=== PATIENT | female | born 1950 | race Caucasian/White ===

== ENCOUNTER 2024-11-04 11:01 | Inpatient (IN) | payer OTHER, SELFPAY ==
[2024-11-04] VITALS (24 sets, daily range): BP systolic 122–214; BP diastolic 42–88; BMI 29.3; BMI 31.9
--- NOTE | 2024-11-04 08:24 | ED.GENMED ---
History of Present Illness
General
Chief Complaint: Heart Rate Problem
Time Seen by Provider: 11/04/24 08:06
History of Present Illness
History of Present Illness:
Patient is a 73-year-old woman with history of prior breast cancer in remission for greater than 5 years presenting to the emergency department of low heart rate. Patient states that she is actually [place] 2 days ago for the same and was told
she needed a pacemaker. However they discussed a temporary wire and patient states that she was not happy with that and actually left AGAINST MEDICAL ADVICE. She went to her primary care doctor who recommended her against that decision. Patient
has a that yesterday she was dizzy and then today came in at the request of her primary. She does say that she is slightly tired but otherwise has no symptoms. She is agreeable to any and all procedures at this time. She denies any
lightheadedness dizziness. No syncopal events. No chest pain. No difficulty breathing. No bites or rashes. Denies any known thyroid problems.
Phy Exam
Physical Exam
Physical Exam:
GENERAL: in no acute distress
HEENT: normocephalic, extraocular movements intact, moist oral mucosa
NECK: normal inspection
RESPIRATORY: no respiratory distress, clear to auscultation bilaterally
CARDIOVASCULAR: Bradycardic rate
ABDOMEN/: soft, non-distended, non-tender to palpation, no rebound or guarding
EXTREMITIES: non-tender, no edema/swelling
NEUROLOGIC: awake and alert, moves all extremities
SKIN: warm
Course
Orders/Labs/Results
Orders:
Orders
11/04/24 07:56
Electrocardiogram (*1) Urgent
Reason for Study: Bradycardia / Tachycardia
EKG- Treatment ONCE
11/04/24 08:27
Basic Metabolic Panel Urgent
Free T4 Urgent
Thyroid profile [TSH Reflex To Free T4] Urgent
11/04/24 09:03
Complete Blood Count/With Diff Urgent
11/04/24 09:19
Magnesium Urgent
Potassium Urgent
Abnormal Lab Results
11/04/24 11/04/24
08:27 09:03
MCH 31.7 H pg
(27.0-31.0)
MPV 11.3 H fL
(7.4-10.4)
Carbon Dioxide 20 L mmol/L
(22-30)
BUN 19 H mg/dl
(7-17)
Glucose 100 H mg/dl
(70-99)
TSH (Reflex) 5.34 H uIU/ml
(0.47-4.68)
11/04/24 09:03
Vital Signs
Initial and Last Documented VS:
Initial Vital Signs
Temp Pulse Resp BP Pulse Ox
98.2 F 39 18 188/79 99
11/04/24 07:51 11/04/24 07:51 11/04/24 07:51 11/04/24 07:51 11/04/24 07:51
Last Documented Vital Signs
Temp Pulse Resp BP Pulse Ox
98.2 F 36 16 169/64 97
11/04/24 07:51 11/04/24 08:33 11/04/24 08:33 11/04/24 09:00 11/04/24 09:00
MDM/Problems Addressed
Differential Diagnosis Includes:
Patient is a 73-year-old woman presenting to the emergency department bradycardia. On arrival here patient's heart rates in the 30s. Her blood pressure reassuringly is actually elevated. EKG per my interpretation is high degree heart block. We
did place pads on patient. Will check blood work occluding magnesium and thyroid. I did discuss with cardiology. After evaluating the EKG states is consistent with Mobitz type II. Recommend mission to the hospitalist service. Lab work is
unremarkable. Potassium magnesium keep hemolyzing. Thyroid studies pending. Discussed with hospitalist who accepted patient to their service
*Critical Care Note
Total Time (30-74mins, 75-104mins- exclusive of procedures): 20
comment:
Critical care statement: A total of 20 minutes of critical care time was provided for this patient. This includes management of unstable vital signs, evaluation of the patient at bedside, reviewing the patient's pertinent medical records, ordering
and reviewing studies, arranging urgent treatment with development of a management plan, evaluating patient's response to treatment, frequent reassessment, and discussion with consultants. This time was separate from time utilized to perform the
aforementioned documented procedures.
ED Attending Note
-
Portions of this chart may have been created with voice recognition software.� Occasional wrong word or��sound alike� substitutions may have occurred due to the inherent limitations of voice recognition software.
Discharge Plan
Departure
Patient Disposition: Admit
Date of Disposition: 11/04/24
Time of Disposition: 09:38
Presentation/result/management discussed w/ accepting MD/DO: Hospitalist
Discharge Problem:
Heart block
Referrals:
Alena Dickerson DO [Family Provider] -
Interventions
Interventions:
*Risk Screen - Suicide Last Done: 11/04/24 07:51
*General Assessment Last Done: 11/04/24 07:51
*Neglect/Abuse Screening Last Done: 11/04/24 07:51
*ED COVID-19 Vaccine History Last Done: 11/04/24 08:30
ED- Pulmonary Assessment Last Done: 11/04/24 08:30
ED- Neurological Assessment Last Done: 11/04/24 08:30
ED- Cardiac Assessment Last Done: 11/04/24 08:30
Discharge Date and Time
Print Language: ARABIC
[2024-11-04 08:52] LABS: Blood Urea Nitrogen 19 mg/dl (7-17); Calcium 9.8 mg/dl (8.4-10.2); Carbon Dioxide 20 mmol/L (22-30); Chloride 105 mmol/L (98-107); Glucose 100 mg/dl (70-99); Sodium 138 mmol/L (135-145); eGFR > 60.00
[2024-11-04 09:11] LABS: % Basophils 0.7 % (0-2); % Eosinophils 4.8 % (0-6); % Immature Granulocytes 0.4 % (0-0.5); % Lymphocytes 24.7 % (20.5-51.1); % Monocytes 8.3 % (1.7-9.3); % Neutrophils 61.1 % (42.2-75.2); Absolute Basophils 0.1 10^3/uL (0-0.2); Absolute Eosinophils 0.4 10^3/uL (0-0.7); Absolute Lymphocytes 1.8 10^3/uL (1.2-3.4); Absolute Monocytes 0.6 10^3/uL (0.1-0.6); Absolute Neutrophils 4.4 10^3/uL (1.4-6.5); Hematocrit 42.2 % (37.0-47.0); Hemoglobin 14.5 g/dL (12.0-16.0); Mean Corp Hgb Conc. 34.4 g/dL (33.0-37.0); Mean Corpuscular Hgb 31.7 pg (27.0-31.0); Mean Corpuscular Volume 92.1 fL (81.0-99.0); Mean Platelet Volume 11.3 fL (7.4-10.4); Nucleated Red Blood Cells % 0 %; Platelet Count 239 10^3/uL (130-400); Red Blood Cell Count 4.58 10^6/uL (4.20-5.40); Red Cell Dist. Width 13.8 % (11.5-14.5); White Blood Cell Count 7.2 10^3/uL (4.8-10.8)
[2024-11-04 09:23] LABS: TSH Reflex To Free T4 5.34 uIU/ml (0.47-4.68)
[2024-11-04 10:04] LABS: Free T4 1.16 ng/dl (0.78-2.19)
--- NOTE | 2024-11-04 10:29 | CON.CAR ---
Addendum entered and electronically signed by Sury Carias PA-C 11/04/24 16:15:
Records obtained from [facility]. Last echocardiogram 06/07/2022: EF 60%, grade 1 diastolic dysfunction, trace MR, mild TR, mildly dilated ascending aorta
Addendum entered and electronically signed by Ye Villa MD 11/04/24 11:15:
Patient seen, interviewed and examined by me.
Well-appearing, no acute distress
Regular rate and rhythm with normal S1 and S2, no S3 no S4. There is a grade 1/6 apical holosystolic murmur and no rubs. PMI is normally placed.
Lungs are clear to auscultation bilaterally without wheezes rales or rhonchi.
Abdomen soft nontender nondistended with normoactive bowel sounds
Extremities show trace pretibial edema bilaterally no clubbing or cyanosis.
Neurologic exam is grossly nonfocal.
Telemetry demonstrates 2-1 heart block.
ECG demonstrates sinus rhythm with 2-1 AV conduction and ventricular rate of 38 bpm. QRS escape is relatively narrow at 98 ms
She has demonstrated symptomatic type II second-degree AV block with no reversible cause.
Management options discussed with her in detail and I recommended implantation of dual-chamber permanent pacemaker for symptomatic heart block with no reversible cause. She understands. I described the procedure in detail including possible risks
such as , pneumothorax, infection with overall major risks of less than 3%. She understands and wishes to proceed with permanent pacemaker implantation.
We reviewed that she does have a history of left-sided breast cancer treated with lumpectomy in 2018. She tells me that yearly screening has found no recurrence. She is right hand dominant and we discussed option of implanting on the left versus
the right. She wishes to proceed with right sided implantation but understands that should she recur with left breast cancer we may have to consider moving or potentially even removing the device to allow complete treatment.
-Plan for left-sided dual-chamber permanent pacemaker implantation today
Agree with advanced practice professionals assessment and plan as noted below.
Original Note:
Consultation
Consultation Request
Date/Time Consultation Performed: 11/04/24
Requesting Provider: Dr. Hernandez
Performing Provider: Sury Carias PA-C for Dr. Kerwin Villa
Reason for Consultation: heart block
Medical History
-
Chief Complaint: heart block
History of Present Illness:
Patient is a 73-year-old female with past medical history of left-sided breast cancer status post lumpectomy and radiation, in remission, COPD, intermittent Mobitz 2 AV block/Wenckebach, who when seen by Dr. Becerra in 07/2024 was noted to be in
permanent Mobitz 2, not intermittent as she had previously been noted to be in in the past. She met with EP physician at [facility] who recommended pacemaker placement, however she did not proceed with pacemaker at that time. She
reports feeling sluggish in the mornings in particular, and short of breath with climbing stairs, however otherwise reports she has been 'doing okay'. 2 days ago when she woke up she had episode where she felt very dizzy with ringing in her ears
and seeing light in her eyes. She was seen by her primary care physician and recommended evaluation. She was scheduled to see Dr. Spivey for second opinion 11/13/2024, so came to [facility]. She is noted to be in 2-1 AV block with heart
rates in the 30s to 40s. Denies episodes of syncope. She is now agreeable to pacemaker. Is not on AV eddie blocking agents as an outpatient.
PMH:
Intermittent Mobitz 2 AV block
Left-sided breast cancer status post lumpectomy and radiation, in remission
Hyperlipidemia, prior statin refusal
COPD
Past Medical History
Past Medical History: Other (in HPI)
Social History
Tobacco: Non-Smoker
Alcohol: Occasional
Living: Alone
Employment: Retired
Family History
Family History: Reviewed & Not Pertinent
Allergies / Home Medications
�Medication �Instructions �Recorded �Confirmed �Type
No Meds [No Current Medications] 11/04/24 11/04/24 History
Review of Systems
-
History Source: Patient and Family
All other systems: Negative unless noted
Physical Exam
Vital Signs
Temp Pulse Resp BP Pulse Ox
98.2 F 36 16 169/64 97
11/04/24 07:51 11/04/24 08:33 11/04/24 08:33 11/04/24 09:00 11/04/24 09:00
Lab Results
11/04/24 09:03
Physical Exam
General: No Apparent Distress and Comfortable
HEENT: Normocephalic, Anicteric and Moist Mucous Membranes
Respiratory: Clear and Non Labored Respirations
Cardiac: S1/S2, Regular Rhythm and Other (bradycardic)
GI: Soft, Non Tender, Non Distended and Normal Bowel Sounds
Musculoskeletal: No Clubbing, No Cyanosis and No Edema
Skin: Warm and Dry
Neuro: AO x 3
Impression / Plan
-
Primary Briquette Machine Operator: Dr. Becerra of [facility]
Assessment:
Dizziness
Symptomatic high grade AV block
HTN
Left-sided breast cancer status post lumpectomy and radiation, in remission
Hyperlipidemia, prior statin refusal
COPD
ECHO 11/04/24: pending
Plan:
-Patient with history of intermittent Mobitz type II AV block with recent noted progression to permanent, now presents to [facility] after episode of dizziness and noted to be in 2-1 heart block with heart rates in the 30s to 40s.
-reviewed records from primary wafer production lead worker including office visit 07/28/24. requested additional records including last echo for review
-As with symptomatic high-grade AV block, will plan for pacemaker placement today. She last had a coffee at 5 AM, nothing since. Will keep n.p.o.
-Reviewed pacemaker procedure with patient and son at bedside. We reviewed postprocedure activity restrictions and limitations. She is agreeable to proceed
-Blood pressure is markedly elevated in ER. Ordered IV hydralazine 5 mg now. Will follow blood pressure trends post pacemaker, and may need to consider addition of daily antihypertensive
-Urgent echo ordered
-TSH 5.34 with compensated free T4
-Discussed with hospitalist via [place] text
Data Reviewed
-
EKG: Tracing Personally Visualized and interpreted
Labs: Labs Reviewed by me
Old Records: Requested and Reviewed
--- NOTE | 2024-11-04 10:45 | HPS.HSE ---
Family Physician
-
Family Physician: Alena Dickerson
Chief Complaint
-
Dizziness
History of Present Illness
73-year-old female with past medical history of breast cancer status postlumpectomy, appendicitis status post appendectomy came to the hospital with bradycardia and dizziness. Patient was at [facility] 2 days ago with similar symptoms and
was recommended pacemaker. Cardiology they recommended temporary pacemaker wire and transfer the patient however patient left AGAINST MEDICAL ADVICE. Patient came in today with complaining of dizziness, mild headache. Denies any chest pain,
shortness of breath. Denies any syncopal events. Denies any abdominal pain, nausea, vomiting, diarrhea, constipation
Medical History
Past Medical History
Past Medical History: Reports HTN and Other (Breast cancer)
Past Surgical History: Reports Appendectomy
Social History
Tobacco: Non-smoker
Family History
Family History: Not pertinent
Allergies / Home Medications
Allergies reflects when Allergies were last updated in [facility].
Home Medications with original date entered in [facility]
Allergy/Medication List:
Allergies
Allergy/AdvReac Type Severity Reaction Status Date / Time
No Known Allergies Allergy Verified 11/04/24 10:39
Home Medications
No Meds [No Current Medications] 11/04/24
Review of Systems
-
History Source: Patient
A 12 point ROS was completed and negative except as noted: Yes
Constitutional: Reports Other (Dizziness)
Physical Exam
Vital Signs
Vital Signs
Temp Pulse Resp BP Pulse Ox
98.2 F 36 16 169/64 97
11/04/24 07:51 11/04/24 08:33 11/04/24 08:33 11/04/24 09:00 11/04/24 09:00
Physical Exam
General: Well Nourished and No Apparent Distress
HEENT: Anicteric and Moist mucous membranes
Respiratory: Clear and Non Labored Respirations; No Wheezes
Cardiac: S1/S2 and Bradycardia
Breast: Deferred by me
GI: Soft, Non Tender, Non Distended and Normal Bowel Sounds
Rectal: Deferred by Provider
Genito-urinary: No Wall
Musculoskeletal: No Edema
Neuro: Awake, Alert, Oriented and AO x 3
Psych: Calm and Intact Judgment/Insight
Laboratory Results
-
11/04/24 09:03
Laboratory Results
Total Bilirubin Cancelled 11/04/24 08:27
AST Cancelled 11/04/24 08:27
ALT Cancelled 11/04/24 08:27
Alkaline Phosphatase Cancelled 11/04/24 08:27
Data Reviewed
-
Lab Data: Labs Reviewed by me, Discussed with Patient and Discussed with Family
Impression/Plan
-
Bradycardia, dizziness/lightheadedness secondary to Mobitz type II AV block
Discussed with cardiology, plan for pacemaker today
N.p.o.
Echocardiogram
Admit to IVU
Monitor on telemetry
TSH high however free T4 normal, monitor
Check Trop
Hypertension
Per patient she has intermittent hypertension however does not take any medications
Hydralazine in the ED, continue to monitor
History of breast cancer status postlumpectomy
DVT prophylaxis
SCDs for now, post pacemaker per cardiology
Full code
Discussed with son at bedside
[2024-11-04] MEDS: APRESOLINE 5 MG IV (10:51)
[2024-11-04 11:24] LABS: Potassium 4.5 mmol/L (3.5-5.1)
--- NOTE | 2024-11-04 14:06 | W.PN.UPDATE ---
Update Note
Progress Note Update
Briefly, patient is a pleasant 73 year old female with past medical history significant for left sided breast CA s/p lumpectomy/XRT in remission, COPD, intermittent now reported permanent 2nd degree type 2 (Mobitz 2) AVB. Patient presenting with
symptomatic irreversible bradycardia and high degree AVB. No reported syncope. Patient previously recommended PPM 07/2024 with physician at [facility] but refused. Patient presenting today due to worsening bradycardia symptoms/dizziness and
presented to with symptomatic bradycardia HR 30-40 with 2:1 AVB (2nd degree type 2). Dr. Villa spoke with patient and discussed pacemaker, patient agreeable to to pacemaker. In my discussion with patient, we discussed pacemaker indications
and device implant in detail. For implant there is an approximate 1:1000 risk of LA/stroke/ and a 1% risk of pneumothorax/tamponade/infection/bleeding. We also discussed post procedure implant restrictions including positions to avoid with
implant arm for first six weeks after implant as well as driving restrictions. I took time to answer all questions. We discussed that we plan to place pacemaker left-sided per patient request given handedness however we will start with venogram in
order to better assess blood vessel course and if unable to place due to anatomy on left side, will place right-sided. Patient agreed and verbalized understanding. Regarding pacemaker, patient verbalized understanding and agreed with plan.
Patient remains NPO. Consent signed.
--- NOTE | 2024-11-04 16:22 | ITS.CL.PACE ---
Superintendent Production - Pacemaker Implant
Pacemaker Implant
Procedure Report:
Primary Care Doctor: Alena Dickerson DO
Procedure Date: 11/04/2024
Name of procedure:
1. Placement of a dual-chamber pacemaker with left bundle area pacing lead for conduction system pacing
2. Subclavian venography
History:
1. patient is a pleasant 73 year old female with past medical history significant for left sided breast CA s/p lumpectomy/XRT in remission, COPD, intermittent now reported permanent 2nd degree type 2 (Mobitz 2) AVB. Patient presenting with
symptomatic irreversible bradycardia and high degree AVB. No reported syncope.
2. Please refer to H&P for complete history.
Indication:
Symptomatic irreversible bradycardia
Second-degree type II AV block
Methods:
After informed consent was obtained, the patient was brought to the EP laboratory in a postabsorptive, nonsedated state. Peripheral IV access was established. Prophylactic antibiotics were administered prior to incision. Continuous ECG, blood
pressure, and pulse oximetry were initiated. Cardioversion patch electrodes were placed on the patient's chest and back. A grounding patch was applied to the skin. Sedation was administered by anesthesia services.
In order to define the extrathoracic portion of the subclavian vein and exclude significant venous obstruction or anomalous anatomy, subclavian venography was performed prior to the procedure. Using the patient's left peripheral IV, contrast was
injected and images were recorded. The left subclavian vein and SVC were found to be widely patent.
The left chest was prepared and draped in a sterile fashion. A time-out was performed. Local anesthesia was injected in the subcutaneous tissue in the infraclavicular area. An incision was made medial to the deltopectoral groove. The subcutaneous
tissue was dissected the level of the prepectoral fascia. A subcutaneous pocket was created. Under fluoroscopic guidance and with the assistance of the images from the venogram, 2 separate venipunctures were made using micropuncture and modified
Seldinger technique. These were performed in the extrathoracic portion of the subclavian vein. Guidewires were passed and two peel-away sheaths were placed, and used to advance leads into the circulation.
Fluoroscopy was used to determine likely anatomic site for left bundle branch pacing. The Medtronic C315 sheath was used to deliver the Medtronic 3830 Selectsecure pacing lead with the helix exposed just exposed from the sheath tip during continuous
monitoring when pacemapping the septum during gentle clockwise rotation to obtain a paced QRS morphology of a W pattern in lead V1. Once the suspected optimal site was identified, lead deployment was performed with several rapid rotations as paced
QRS morphology was intermittently monitored until a paced QRS complex in lead V1 demonstrated development of an R wave (qR or rSR). Unipolar pacing impedance dropped by approximately 100-200 ohms suggesting it had reached the left ventricular
subendocardial. Stable VEgm injury current is present throughout lead position and at end of case. Final unipolar pacing impedance is 912 Ohms with clips. Unipolar pacing threshold is stable at 1.2 V @ 0.4 ms. The patient had pre-existing narrow
QRS. Final conduction system paced QRS complex duration is 108 ms, LVAT is 37 ms, and peak V5 -> peak V1 timing is 85 ms. The C315 sheath was slit under fluoroscopy ensuring lead position and stability.
Next, the right atrial lead was positioned in the right atrial appendage. Adequate sensing and pacing parameters were found, and no diaphragmatic stimulation was seen with high-output pacing. Both sheaths were split, and the leads were secured to
the fascia with Ethibond ties.
The pocket was flushed with antibiotic solution and hemostasis was assured. The generator was connected to the leads and placed inside the pocket. The device was sutured to the fascia. Antibiotic envelope was used. The wound was closed with 3
running layers of absorbable suture, and steri-strips were applied. Dressing applied over steri-strips in standard fashion.
Following the procedure, the patient was taken to the recovery area in stable condition. A chest x-ray to be obtained post procedure as routine.
Lead parameters and device programming:
- RA Lead (Medtronic, Model 5076, # [id number]): Sensing 2.6 mV, Pacing threshold 0.5 V at 0.4 ms, Imp 855 ohm
- RV Lead (Medtronic, Model 3030, #[id number]): Sensing 13.4 mV, Pacing threshold 0.75 V at 0.4 ms, Imp 513 ohm
- Device: Medtronic, Model W1 DR 01 pacemaker (# [id number]), programmed DDD, mode switch on, lower rate 60, upper tracking rate 130
Conclusions:
1. Successful placement of a dual-chamber pacemaker with conduction system pacing (LBBAP)
2. Subclavian venography
Recommendations:
1. Admit
2. Chest x-ray today, [facility] tomorrow
3. IV antibiotics while the patient is admitted.
4. OK to resume home medications as indicated
5. Pressure dressing to be removed in AM, aquacell to remain until wound check
6. Follow-up will be arranged in the office in 7-10 days post-discharge
Gasper Jones DO
Clinical Cardiac System Development Engineer
cc: Alena Dickerson DO
[2024-11-04] MEDS: TYLENOL 650 MG PO (18:21)
[2024-11-04] MEDS: NSS 1000 IV (19:51)
[2024-11-04 20:33] LABS: Troponin I 0.929 ng/ml
--- NOTE | 2024-11-04 21:30 | PTCARENOTE ---
Pt received in bed- Plan of care discussed- IVF started- L chest wall CDI with pressure dressing in place. Pt still states 3/10 L chest wall pain after Tylenol- ice pack provided. finance effectiveness manager or svp programmatic tv on the monitor 50s- 60s
[2024-11-04] MEDS: ANCEF 5 IV (22:31)
[2024-11-05] VITALS (21 sets, daily range): BP systolic 131–194; BP diastolic 66–104; PULSE 64–66; O2SAT 97; BMI 32.0
[2024-11-05] MEDS: ANCEF 5 IV (05:10)
[2024-11-05] MEDS: TYLENOL 650 MG PO ×2 (05:25→09:38)
[2024-11-05 05:45] LABS: % Basophils 0.5 % (0-2); % Eosinophils 5.5 % (0-6); % Immature Granulocytes 0.3 % (0-0.5); % Lymphocytes 21.2 % (20.5-51.1); % Monocytes 8.9 % (1.7-9.3); % Neutrophils 63.6 % (42.2-75.2); Absolute Eosinophils 0.4 10^3/uL (0-0.7); Absolute Lymphocytes 1.7 10^3/uL (1.2-3.4); Absolute Monocytes 0.7 10^3/uL (0.1-0.6); Absolute Neutrophils 5.1 10^3/uL (1.4-6.5); Hematocrit 42.2 % (37.0-47.0); Hemoglobin 14.3 g/dL (12.0-16.0); Mean Corp Hgb Conc. 33.9 g/dL (33.0-37.0); Mean Corpuscular Hgb 31.4 pg (27.0-31.0); Mean Corpuscular Volume 92.7 fL (81.0-99.0); Mean Platelet Volume 9.4 fL (7.4-10.4); Nucleated Red Blood Cells % 0 %; Platelet Count 195 10^3/uL (130-400); Red Blood Cell Count 4.55 10^6/uL (4.20-5.40); Red Cell Dist. Width 13.2 % (11.5-14.5)
[2024-11-05 06:01] LABS: Blood Urea Nitrogen 13 mg/dl (7-17); Calcium 9.3 mg/dl (8.4-10.2); Carbon Dioxide 19 mmol/L (22-30); Chloride 109 mmol/L (98-107); Estimated Creatinine Clearance 79 ml/min; Glucose 113 mg/dl (70-99); Magnesium 1.8 mg/dl (1.6-2.3); Potassium 4.2 mmol/L (3.5-5.1); Sodium 140 mmol/L (135-145); eGFR > 60.00
[2024-11-05 06:38] LABS: Troponin I 0.273 ng/ml
--- NOTE | 2024-11-05 07:41 | W.PN.CARDCBS ---
Addendum entered and electronically signed by Kristin Wolff DO 11/05/24 17:24:
I saw and examined the patient.
The Cook Fruit's note was reviewed and I agree with the note.
Comment: Patient was seen and examined. Overall feels better. Pressure dressing removed at bedside and site looks good.
GEN: No distress, awake, alert, oriented x3
HEENT: mmm
LUNGS: CTA b/l, no wheezes/rales
CV: Reg, S1/S2, no murmur Device site with dressing
EXT: No clubbing, cyanosis, or edema
NEURO: Gross non-focal
Plan:
Symptomatic high degree AV block status post Medtronic pacemaker 11/04/2024
-Device site looks good and we reviewed postprocedure activity restrictions and monitoring
-Will have outpatient wound check arranged in our office
Hypertension, untreated and uncontrolled
-New start amlodipine 10 mg daily
-If blood pressures remain elevated would add INDERJIT inhibitor which can ultimately be combined with amlodipine as an outpatient
-Goal normotension
Hyperlipidemia with prior statin refusal can be readdressed as an outpatient
Will sign off, recall if needed
Original Note:
Today's Communication / Plan
-
Appears well post PPM
Would start amlodipine 5mg daily
Follow up arranged
OK for discharge
Impression / Plan
-
Commercial Designer: Dr. Becerra of [facility], however wishes to transition to [facility]
Assessment:
Dizziness
Symptomatic high grade AV block
s/p Medtronic DC PPM 11/04/2024
HTN, untreated
Left-sided breast cancer status post lumpectomy and radiation, in remission
Hyperlipidemia, prior statin refusal
COPD
Echo @[facility] 06/07/2022: EF 60%, grade 1 diastolic dysfunction, trace MR, mild TR, mildly dilated ascending aorta
ECHO 11/04/2024: EF 65 to 70%, mild with peak/mean gradients 30/13 mmHg, KONRAD 1.9 cm�, mild to moderate TR, estimated PAP 35 to 40 mmHg
Plan:
-She has known history of intermittent Mobitz type II AV block with recent noted progression to permanent. Admitted to with dizziness and symptomatic 2:1 heart block w/ HR in 30s to 40s.
-Now s/p DC PPM implant 11/04/2024. Doing well this AM.
-Tele stable overnight. A-sensed, V paced.
-Echo 11/04/2024 w/ preserved EF and mild as noted above.
-TSH 5.34 with compensated free T4.
-BP remains elevated throughout the night. Discussed w/ patient and she believes she has been on medication for HTN in the past, but not recently.
-Would start amlodipine 5mg daily and will follow as OP.
-Wound check appointment and HV follow up appt arranged at [facility].
-OK for discharge from cardiac standpoint. Discussed arm restrictions post PPM.
HPI: Patient is a 73-year-old female with past medical history of left-sided breast cancer status post lumpectomy and radiation, in remission, COPD, intermittent Mobitz 2 AV block/Wenckebach, who when seen by Dr. Becerra in 07/2024 was noted to be
in permanent Mobitz 2, not intermittent as she had previously been noted to be in in the past. She met with EP physician at [facility] who recommended pacemaker placement, however she did not proceed with pacemaker at that time. She
reports feeling sluggish in the mornings in particular, and short of breath with climbing stairs, however otherwise reports she has been 'doing okay'. 2 days ago when she woke up she had episode where she felt very dizzy with ringing in her ears
and seeing light in her eyes. She was seen by her primary care physician and recommended evaluation. She was scheduled to see Dr. Spivey for second opinion 11/13/2024, so came to [facility]. She is noted to be in 2-1 AV block with heart
rates in the 30s to 40s. Denies episodes of syncope. She is now agreeable to pacemaker. Is not on AV eddie blocking agents as an outpatient.
Progress Note - Commercial Designer
Subjective
Date of Service: November 05, 2024
Feeling well this AM. Does have some soreness around implant.
Objective
Labs:
11/05/24 05:25
11/05/24 05:25
Labs
Hgb 14.3 g/dL (12.0-16.0) 11/05/24 05:25
Hct 42.2 % (37.0-47.0) 11/05/24 05:25
Plt Count 195 10^3/uL (130-400) 11/05/24 05:25
Sodium 140 mmol/L (135-145) 11/05/24 05:25
Potassium 4.2 mmol/L (3.5-5.1) 11/05/24 05:25
BUN 13 mg/dl (7-17) 11/05/24 05:25
Creatinine 0.6 mg/dL (0.6-1.0) 11/05/24 05:25
Glucose 113 mg/dl (70-99) H 11/05/24 05:25
Troponins
11/04/24 11/05/24
19:55 05:25
Troponin I 0.929 H* 0.273 H*
Vital Signs and I&O:
Vital Signs
Temp Pulse Resp BP Pulse Ox
97.4 F 62 20 159/69 98
11/05/24 07:03 11/05/24 05:48 11/05/24 07:03 11/05/24 05:48 11/05/24 07:03
Vital Signs
Temp Pulse Resp BP Pulse Ox
97.4 F 62 20 159/69 98
11/05/24 07:03 11/05/24 05:48 11/05/24 07:03 11/05/24 05:48 11/05/24 07:03
Physical Exam
Physical Exam
GEN: No distress, awake, alert, oriented x3
HEENT: supple, anicteric, mmm
LUNGS: CTA b/l, no wheezes/rales
CV: Reg, S1/S2, no murmur
EXT: No clubbing, cyanosis, or edema
NEURO: Gross non-focal
SKIN: Warm, dry, no rash
[2024-11-05] MEDS: APRESOLINE 5 MG IV ×2 (08:06→12:26)
[2024-11-05] MEDS: NSS 1000 IV (08:07)
[2024-11-05] MEDS: NORVASC 5 MG PO ×2 (09:24→14:17)
--- NOTE | 2024-11-05 11:38 | W.PN.HOSP.TC ---
Today's Communication/Plan
-
Monitor blood pressure closely
See plan
Continue with amlodipine, will likely increase to 10 mg if blood pressure still uncontrolled
Hydralazine as needed, extra dose now
Assessment / Plan
Assessment / Plan
General: Well Nourished and No Apparent Distress
HEENT: Anicteric and Moist mucous membranes
Respiratory: Clear and Non Labored Respirations; No Wheezes
Cardiac: S1/S2,PPM,chest wall bandage
GI: Soft, Non Tender, Non Distended and Normal Bowel Sounds
Genito-urinary: No Wall
Musculoskeletal: No Edema
Neuro: Awake, Alert, Oriented and AO x 3
Psych: Calm and Intact Judgment/Insight
Bradycardia, dizziness/lightheadedness secondary to Mobitz type II AV block
Status post pacemaker 11/04
Echocardiogram with preserved EF
TSH high however free T4 normal, monitor
Elevated troponin, likely nonischemic myocardial injury from AV block
Monitor
Hypertension
Per patient she has intermittent hypertension however does not take any medications
Hydralazine as needed, started amlodipine, will uptitrate if needed. Currently blood pressure still uncontrolled. Patient is with headache
History of breast cancer status postlumpectomy
DVT prophylaxis
SCDs for now, post pacemaker per cardiology
Full code
Anticipated Discharge: Within 24 hours
Subjective/Interval History
-
Date of Service: November 05, 2024
Has headache
Objective Data
-
Labs:
Laboratory Results
11/05/24
05:25
WBC 8.0
Hgb 14.3
Hct 42.2
Plt Count 195
Sodium 140
Potassium 4.2
Chloride 109 H
Carbon Dioxide 19 L
BUN 13
Creatinine 0.6
Glucose 113 H
Calcium 9.3
Vital Signs:
Vital Signs
Temp Pulse Resp BP Pulse Ox
97.4 F 66 16 191/80 97
11/05/24 11:18 11/05/24 11:35 11/05/24 11:18 11/05/24 11:35 11/05/24 11:18
I&O
11/04/24 11/05/24 11/06/24
06:59 06:59 06:59
Intake Total 400 / 400
Balance 400 / 400
--- NOTE | 2024-11-05 12:32 | CM ---
spoke to pt in room, she is prev indep, lives in an apt with 16 steps to enter. she denies any dc planning needs or dme's. plan is for dc to home when medically stable.
--- NOTE | 2024-11-05 12:43 | PTCARENOTE ---
Manual BP 182/80. 5mg IV Hydralazine ordered and administered. Repeat BP 152/79.
--- NOTE | 2024-11-05 21:06 | PTCARENOTE ---
pt received at change of shift. pt seen and assessed in room. AOx3, tele reading AV paced. Pacemaker site at left chest wall, c/d/i. no complaints of pain at this site. pt. ambulating independently. last BP 131/74, no PRN hydralazine needed at this
time. this RN discussed POC, pt. verbalizes understanding. call schwarz within reach. continuing to monitor at this time.
[2024-11-06 02:22] VITALS: BP 144/74
[2024-11-06 02:24] VITALS: BP 144/74
[2024-11-06 03:05] LABS: % Basophils 0.6 % (0-2); % Immature Granulocytes 0.2 % (0-0.5); % Lymphocytes 23.5 % (20.5-51.1); % Monocytes 9.9 % (1.7-9.3); % Neutrophils 59.8 % (42.2-75.2); Absolute Basophils 0.1 10^3/uL (0-0.2); Absolute Eosinophils 0.5 10^3/uL (0-0.7); Absolute Lymphocytes 2.1 10^3/uL (1.2-3.4); Absolute Monocytes 0.9 10^3/uL (0.1-0.6); Absolute Neutrophils 5.3 10^3/uL (1.4-6.5); Hematocrit 39.6 % (37.0-47.0); Hemoglobin 13.6 g/dL (12.0-16.0); Mean Corp Hgb Conc. 34.3 g/dL (33.0-37.0); Mean Corpuscular Hgb 31.3 pg (27.0-31.0); Mean Platelet Volume 9.6 fL (7.4-10.4); Nucleated Red Blood Cells % 0 %; Platelet Count 204 10^3/uL (130-400); Red Blood Cell Count 4.35 10^6/uL (4.20-5.40); Red Cell Dist. Width 13.3 % (11.5-14.5); White Blood Cell Count 8.8 10^3/uL (4.8-10.8)
[2024-11-06 03:28] LABS: Blood Urea Nitrogen 10 mg/dl (7-17); Calcium 9.2 mg/dl (8.4-10.2); Carbon Dioxide 21 mmol/L (22-30); Chloride 110 mmol/L (98-107); Estimated Creatinine Clearance 79 ml/min; Glucose 107 mg/dl (70-99); Potassium 4.2 mmol/L (3.5-5.1); Sodium 139 mmol/L (135-145); eGFR > 60.00
[2024-11-06 07:53] VITALS: BP 134/74
[2024-11-06] MEDS: NORVASC 10 MG PO (08:19)
--- NOTE | 2024-11-06 11:35 | PTCARENOTE ---
Discussed post PPM pt instructions. Pt verbalized understanding. Will monitor.
--- NOTE | 2024-11-06 11:41 | W.PN.HOSP.TC ---
Addendum entered and electronically signed by Ronnie Walters MD 11/06/24 14:56:
Hypertensive Urgency
Original Note:
Today's Communication/Plan
-
Monitor vital signs see plan
Continue with amlodipine
Discharge today
Time of discharge 37 minutes
Assessment / Plan
Assessment / Plan
General: Well Nourished and No Apparent Distress
HEENT: Anicteric and Moist mucous membranes
Respiratory: Clear and Non Labored Respirations; No Wheezes
Cardiac: S1/S2,PPM,chest wall bandage
GI: Soft, Non Tender, Non Distended and Normal Bowel Sounds
Genito-urinary: No Wall
Musculoskeletal: No Edema
Neuro: Awake, Alert, Oriented and AO x 3
Psych: Calm and Intact Judgment/Insight
Bradycardia, dizziness/lightheadedness secondary to Mobitz type II AV block
Status post pacemaker 11/04
Echocardiogram with preserved EF
TSH high however free T4 normal, monitor
Elevated troponin, likely nonischemic myocardial injury from AV block
Monitor
Hypertension
Per patient she has intermittent hypertension however does not take any medications
Hydralazine as needed, started amlodipine, increase to 10 mg. Blood pressure much better now. Discharge home. Patient aware to check blood pressure outpatient and follow-up with PCP
History of breast cancer status postlumpectomy
DVT prophylaxis
SCDs for now, post pacemaker per cardiology
Full code
Anticipated Discharge: Today
Subjective/Interval History
-
Date of Service: November 06, 2024
Denies pain
Objective Data
-
Labs:
Laboratory Results
11/06/24
02:27
WBC 8.8
Hgb 13.6
Hct 39.6
Plt Count 204
Sodium 139
Potassium 4.2
Chloride 110 H
Carbon Dioxide 21 L
BUN 10
Creatinine 0.6
Glucose 107 H
Calcium 9.2
Vital Signs:
Vital Signs
Temp Pulse Resp BP Pulse Ox
98.4 F 74 18 134/74 97
11/06/24 07:55 11/06/24 10:00 11/06/24 07:55 11/06/24 08:19 11/06/24 07:55
I&O
11/05/24 11/06/24 11/07/24
06:59 06:59 06:59
Intake Total 1000 / 1000
Balance 1000 / 1000
--- NOTE | 2024-11-06 11:44 | W.DCSUMMARY ---
Discharge Summary
Discharge Data
Date of Admission: 11/04/24
Date of Discharge: 11/06/24
-
Pending Results: No
Hospital Course
73-year-old female with past medical history of breast cancer status postlumpectomy, hypertension came to the hospital with bradycardia, dizziness/lightheadedness secondary to Mobitz type II AV block. Patient was seen by cardiology and was taken
for pacemaker placement. Echocardiogram was done which showed preserved EF. Patient TSH was high on admission however free T4 was normal. Patient also had some troponin elevation which was likely thought was nonischemic myocardial injury from AV
block. Given her uncontrolled blood pressure she was started on amlodipine which was uptitrated to 10 mg daily. Her blood pressure continue to improve over time. On discharge she was instructed to check blood pressure twice daily and to follow-up
with primary care provider for further blood pressure medication titration. Once her symptoms continue to improve, she was then discharged home with instructions to follow-up with all her physicians outpatient.
Discharge Plan
-
Patient Disposition: Home (Routine Discharge)
Discharge Diagnosis/Procedures: Mobitz type II AV block status post pacemaker implant
Uncontrolled hypertension
Diet: As tolerated and Regular
Driving Restrictions: No driving for 1 week
Bathing Restrictions: OK to Shower
Activity Restrictions/Additional Instructions:
Please monitor your blood pressure twice daily and to follow-up with primary care provider for further blood pressure management
Stand Alone Forms: DC Inst - Implanted Device
Referrals:
José Antonio.[facility] [Provider Group] - 11/11/24 10:00 am (Incision check appointment)
Yolanda Abdalla CRNP [Specified Professional Personl] - 11/30/24 2:20 pm (You have a follow up visit with Dr. Jones's CORPORATE SALES TRAINER, Yolanda, at the [facility]. Please call with questions. )
Alena Dickerson DO [Family Provider] - in less than 1 week
Prescriptions:
New
acetaminophen 325 mg Tablet
650 mg PO Q4HPRN PRN (Reason: MILD PAIN) Qty: 0 0RF
amlodipine 10 mg Tablet
10 mg PO DAILY Qty: 30 0RF
Discharge Orders:
Discharge Patient (As Directed); Ordered 11/06/24
Ordered By: Ronnie Walters
Care Plan Goals
Care Plan Goals:
Problem: Readiness for enhanced knowledge related to diagnosis and treatment plan
Goal: Understand your diagnosis and treatment plan needs, including medications if applicable.
Instructions: Know your diagnosis, underlying causes and treatment plan options, including medications if applicable. Consult with your health care team to learn about your diagnosis and treatment plan, including medications if applicable.
Discharge Date and Time
Discharge Date/Time: 11/06/24 17:05
Print Language: PERSIAN
[2024-11-06 12:02] VITALS: BP 144/80
--- NOTE | 2024-11-06 14:42 | PN.CDI ---
CDI
- -
CDI:
Physician Documentation Request
Admit Date: 11/04/24 11:01
Dear Doctor Romeo,
Clinical Indicators:
Patient admitted with Mobitz type II AV block; s/p dual chamber pacemaker 11/04.
11/04 - 11/05 Hydralazine 5 mg IV x 3 doses.
11/05 PN, 'Currently blood pressure still uncontrolled. Patient is with headache'
B/P trend:
11/04/24
07:51 11/04/24
08:08 11/04/24
09:30
Blood pressure 188/79 214/58 201/68
11/04/24
10:00 11/05/24
10:38 11/05/24
11:35
Blood pressure 190/67 194/77 191/80
Please clarify which, if any of the following, is a more accurate diagnosis reflecting the type and acuity of the documented hypertension:
Hypertensive Urgency - B/P is severely elevated (systolic > or = to 180 or diastolic > or = to 110) but there is no associated organ damage. Symptoms may include: headache, shortness of breath, nosebleeds, severe anxiety. Treatment usually consists
of addition to or adjusting of oral medications and does not generally necessitate hospitalization.
Essential primary hypertension
Other (please specify)
Use of terms such as suspected, likely, concern for, or probable (associated with a specific diagnosis that is being evaluated, monitored, or treated as if it exists) are acceptable and can be coded in the inpatient setting, when documented at the
time of discharge.
Thank you,
Isabella Hammer RN
CDI Specialist
available via tiger text
Please use your independent medical judgment in providing your response.
[2024-11-06 15:55] VITALS: BP 152/81
== END 2024-11-06 17:05 | disposition home or self-care (01) | DRG 243 ==
LOC: IVU 11:01
PROVIDERS: Internal Medicine Cardiovascular Disease; ADMITTING PHYSICIAN Internal Medicine; EMERGENCY PHYSICIAN Student in an Organized Health Care Education/Training Program; FAMILY PHYSICIAN Family Medicine; OTHER PHYSICIAN Internal Medicine Cardiovascular Disease
PROC: 02H63JZ Insertion of Pacemaker Lead into Right Atrium, Percutaneous Approach (ICD-10-PCS; 2024-11-04)
PROC: B5171ZZ Fluoroscopy of Left Subclavian Vein using Low Osmolar Contrast (ICD-10-PCS; 2024-11-04)
PROC: 02HK3JZ Insertion of Pacemaker Lead into Right Ventricle, Percutaneous Approach (ICD-10-PCS; 2024-11-04)
PROC: 0JH606Z Insertion of Pacemaker, Dual Chamber into Chest Subcutaneous Tissue and Fascia, Open Approach (ICD-10-PCS; 2024-11-04)
DX: I44.1 Atrioventricular block, second degree (principal); I5A Non-ischemic myocardial injury (non-traumatic); J44.9 Chronic obstructive pulmonary disease, unspecified; I16.0 Hypertensive urgency; E78.5 Hyperlipidemia, unspecified; I10 Essential (primary) hypertension; Z60.2 Problems related to living alone; Z92.3 Personal history of irradiation; Z85.3 Personal history of malignant neoplasm of breast; Z90.49 Acquired absence of other specified parts of digestive tract
CPT/HCPCS: 33208; 71045; 80048; 83735; 84132; 84439; 84443; 84484; 85025; 93005; 93306; 97163; 97166; 99285; C1769; C1785; C1887; C1892; C1898